=== PATIENT | female | born 1990 | race Caucasian/White ===

== ENCOUNTER → 2025-09-22 06:57 | Outpatient (REF) | payer OTHER, SELFPAY | LOC: MRI 3T 06:57 | PROVIDERS: ATTENDING PHYSICIAN Physician Assistant Surgical | DX: M67.979 Unspecified disorder of synovium and tendon, unspecified ankle and foot (principal); M25.571 Pain in right ankle and joints of right foot | CPT/HCPCS: 73721 ==